=== PATIENT | male | born 1955 | race Caucasian/White ===

== ENCOUNTER 2018-05-29 12:31 | Inpatient (IN) | payer BC ==
[~2018-05-29] VITALS: Ht 193 cm; Wt 99.6 kg
[~2018-05-29 12:31] MED LIST: AMOXICILLIN 8751 TAB PO; NORCO 325 MG-51 TAB PO
[2018-07-29] VITALS (12 sets, daily range): BP systolic 120–148; BP diastolic 50–81; PULSE 82–108; TEMP 97.2–98.3
[2018-07-29] MEDS ORDERED: IMITREX50 MG PO (06:29)
[2018-07-30 01:12] VITALS: BP 125/62; PULSE 107; TEMP 98.7
[2018-07-30 04:50] VITALS: BP 125/70; PULSE 96; TEMP 98.4
[2018-07-30 06:04] LABS: BASO % 0.2 % (0.0-2.0); EOS % 0.1 % (0-4.0); GRAN # 9.3 (1.4-6.5); GRAN % 75.4 % (42.2-75.2); HEMATOCRIT 37.9 % (42.0-52.0); HEMOGLOBIN 12.6 g/dl (13.5-18.0); MEAN CELL VOLUME 86 fl (80.0-100.0); MEAN CORPUSCULAR HEMOGLOBIN 29 pg (27.0-31.0); MEAN CORPUSCULAR HGB CONC 33 g/dl (33.0-37.0); MEAN PLATELET VOLUME 9.5 fl (7.4-10.4); PLATELET COUNT 256 K/mm3 (130-400); RED BLOOD COUNT 4.39 M/mm3 (4.20-5.60); REDCELL DISTRIBUTION WIDTH-CV 13.2 % (11.5-14.5)
[2018-07-30 06:24] LABS: CALCIUM 8.4 mg/dL (8.4-10.2); CREATININE, serum 1.05 mg/dL (0.66-1.25); POTASSIUM 4.4 mmol/L (3.4-5.0)
[2018-07-30 08:37] VITALS: BP 132/72; PULSE 92; TEMP 98
[2018-07-30 13:10] VITALS: BP 135/62; PULSE 91; TEMP 97.7
== END 2018-07-30 15:20 | disposition home or self-care (01) | DRG 708 ==
LOC: SURG 07-29 05:37 → INPTSU 07-29 05:37 → SURG 07-29 07:30
PROVIDERS: Urology
PROC: 07BC4ZX Excision of Pelvis Lymphatic, Percutaneous Endoscopic Approach, Diagnostic (ICD-10-PCS; 2018-07-29)
PROC: 8E0W4CZ Robotic Assisted Procedure of Trunk Region, Percutaneous Endoscopic Approach (ICD-10-PCS; 2018-07-29)
PROC: 0VT04ZZ Resection of Prostate, Percutaneous Endoscopic Approach (ICD-10-PCS; principal; 2018-07-29 07:30)
DX: C61 Malignant neoplasm of prostate (principal); G47.33 Obstructive sleep apnea (adult) (pediatric); E78.5 Hyperlipidemia, unspecified
CPT/HCPCS: A4314; A9284; J0690; J1100; J1885; J2250; J2405; J2704; J2710; J7030; J7120

== ENCOUNTER → 2018-11-05 | Outpatient (CLI) | payer BC ==
[~2018-11-05] MED LIST changes: +IMITREX50 MG PO
== END ==
LOC: COL.VAS 14:04
DX: I82.812 Embolism and thrombosis of superficial veins of left lower extremity (principal)

== ENCOUNTER 2022-01-08 19:41 | Emergency (ER) | payer SELFPAY ==
[~2022-01-08] VITALS: Ht 193 cm; Wt 104.5 kg
[2022-01-08 20:04] VITALS: TEMP 98
[2022-01-08 21:16] VITALS: BP 138/78; PULSE 66
== END 2022-01-08 21:17 | disposition home or self-care (01) ==
LOC: COL.ER 19:41
DX: S61.412A Laceration without foreign body of left hand, initial encounter (principal); Z28.310 Unvaccinated for COVID-19; Z23 Encounter for immunization; W20.8XXA Other cause of strike by thrown, projected or falling object, initial encounter